=== PATIENT | female | born 1965 | race Caucasian/White ===

== ENCOUNTER 2025-03-09 22:26 | Emergency (ER) | payer OTHER ==
[~2025-03-09] VITALS: Ht 154.9 cm; Wt 96.6 kg
[2025-03-09] MEDS ORDERED: ONDANSETRON HCL/PF 4 MG/2 ML VIAL ONE (22:49)
[2025-03-09] MEDS ORDERED: MORPHINE SULFATE INJ 4 MG/ML DISP.SYRIN ONE ×2 (22:50→23:41)
[2025-03-09] MEDS: ONDANSETRON HCL/PF 4 MG/2 ML VIAL IVP ONE (22:55)
[2025-03-09] MEDS: MORPHINE SULFATE INJ 2 MG/ML DISP.SYRIN IV ONE ×2 (22:55→23:44)
[2025-03-09 23:06] LABS: PLATELET COUNT (AUTO) 180 K/uL (150-450); RED BLOOD CELL COUNT(AUTO) 4.64 MIL/uL (4.0-5.2); RED CELL DISTRIBUTION WIDTH 13.7 % (11.5-15.0); WHITE BLOOD COUNT (AUTO) 7.6 K/uL (4.3-11.0)
[2025-03-09 23:12] LABS: CALCIUM, SERUM 9.2 mg/dL (8.5-10.1); CREATININE 0.9 mg/dL (0.6-1.3); SODIUM SERUM 141.0 mmol/L (136-145); UREA NITROGEN, BLOOD 19.0 mg/dL (7-18)
[2025-03-09 23:15] LABS: APPEARANCE,URINE CLEAR (CLEAR); BLOOD, URINE NEGATIVE Ery/uL (NEGATIVE); LEUKOCYTE ESTERASE ,URINE NEGATIVE (NEGATIVE); NITRITE, URINE NEGATIVE (NEGATIVE); UGLUCOSE NEGATIVE (NEGATIVE)
[2025-03-09 23:18] LABS: ASPARTATE AMINOTRANSFERASE 13.0 U/L (15-37); TOTAL PROTEIN, SERUM 8.7 g/dL (6.4-8.2)
[2025-03-09] MEDS ORDERED: IOHEXOL-300 100 ML VIAL IV ONE (23:25)
[2025-03-09] MEDS ORDERED: CT SWABBABLE VALVE TRANS SET 1 EA INFUS.SET MC ONE (23:26)
[2025-03-09] MEDS ORDERED: IV NS 0.9% 250 ML IV ONE (23:26)
[2025-03-09 23:40] LABS: ADD URINE CULTURE NO; SQUAMOUS EPITHELIAL CELL,UR Few /HPF (None Seen)
[2025-03-10] MEDS ORDERED: TAMSULOSIN 0.4 MG CAP.SR.24H ONE (01:03)
[2025-03-10] MEDS ORDERED: KETOROLAC TROMETHAMINE 15 MG/ML VIAL ONE (01:03)
[2025-03-10] MEDS: TAMSULOSIN 0.4 MG CAP.SR.24H PO ONE (01:07)
[2025-03-10] MEDS: KETOROLAC TROMETHAMINE 15 MG/ML VIAL IV ONE (01:07)
[2025-03-10] MEDS ORDERED: TAMS-12 PO (01:11)
[2025-03-10] MEDS ORDERED: ONDA4TAB11 PO (01:11)
[2025-03-10] MEDS ORDERED: HYDR-3972 PO (01:11)
[2025-03-10] MEDS ORDERED: IBUP-1957 PO (01:11)
[2025-03-10 01:27] VITALS: BP 164/87; TEMP 98.9; O2SAT 97
== END 2025-03-10 01:28 | disposition home or self-care (01) ==
LOC: ER 22:30
DX: N13.2 Hydronephrosis with renal and ureteral calculous obstruction (principal); R11.2 Nausea with vomiting, unspecified
CPT/HCPCS: 99285; 74177; 96374; 96375 ×2; 96376; 85025; 80048; 83690; 80076; 81001; 36415; J2270 ×2; J2405; J7050; Q9967; J1885